=== PATIENT | male | born 1965 | race Caucasian/White ===

== ENCOUNTER 2016-09-14 11:41 | Emergency (ER) | payer OTHER ==
[~2016-09-14] VITALS: Ht 180.3 cm; Wt 79.4 kg
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
[2016-09-14 12:36] LABS: URINE SOURCE CLEAN CATCH
[2016-09-14 12:43] LABS: URINE APPEARANCE CLEAR; URINE BILIRUBIN NEG (NEG); URINE BLOOD NEG (NEG); URINE COLOR YELLOW; URINE GLUCOSE NEG (NEG); URINE KETONE NEG (NEG); URINE LEUKOCYTE ESTERASE NEG (NEG); URINE NITRATE NEG (NEG); URINE PROTEIN NEG (NEG); URINE SPECIFIC GRAVITY 1.014 (1.003-1.035)
[2016-09-14 12:46] LABS: CULTURE INDICATED? NO
[2016-09-14 12:58] LABS: BASOPHIL% 0.2 % (0-2.5); EOSINOPHIL# 0.2 X10e3 (0-0.7); EOSINOPHIL% 2.9 % (0.0-7.0); HEMATOCRIT 42.7 % (38.0-50.0); HEMOGLOBIN 14.2 gm/dL (13.0-16.0); LYMPHOCYTE# 1.5 X10e3 (1.0-3.5); LYMPHOCYTE% 21.2 % (17.0-45.0); MEAN CELL VOLUME 86.2 FL (83-96); MEAN CORPUSCULAR HEMOGLOBIN 28.7 PG (28-34); MEAN CORPUSCULAR HGB CONC 33.3 g/dL (30-36); MEAN PLATELET VOLUME 8.6 FL (6.5-11.5); MONOCYTE# 0.4 X10e3 (0-1.0); MONOCYTE% 6.1 % (3.0-12.0); NEUTROPHIL# 5.1 X10e3 (1.5-7.1); NEUTROPHIL% 69.6 % (40-75); PLATELET COUNT 212 X10e3 (140-420); RED BLOOD COUNT 4.96 X10e (3.90-5.60); RED CELL DISTRIBUTION WIDTH 13.8 % (11.0-15.5); WHITE BLOOD COUNT 7.3 X10e3 (4.0-10.5)
[2016-09-14 13:13] LABS: DIFF IND NO
[2016-09-14 13:24] LABS: BUN/CREATININE RATIO 16.36; CREATININE SERUM 1.1 mg/dL (0.6-1.4); GLOM FILT RATE Estimated 77.9 mL/min (>60); POTASSIUM 3.9 mmol/L (3.5-5.1)
[2016-09-27] MEDS ORDERED: ASPIRIN81 M2 PO (13:12)
[2016-09-27] MEDS ORDERED: ADVIL200 M1 (13:13)
[2016-10-04] MEDS ORDERED: FLEXERIL10 MG PO (09:00)
== END 2016-09-14 14:55 | disposition home or self-care (01) ==
LOC: CFTX 11:41 → CED 11:41 → CFTX 14:53
PROVIDERS: Nurse Practitioner
DX: S30.0XXA Contusion of lower back and pelvis, initial encounter (principal); K40.90 Unilateral inguinal hernia, without obstruction or gangrene, not specified as recurrent; R03.0 Elevated blood-pressure reading, without diagnosis of hypertension; I25.2 Old myocardial infarction; Z87.891 Personal history of nicotine dependence; V43.52XA Car driver injured in collision with other type car in traffic accident, initial encounter
CPT/HCPCS: 36415; 71020; 74177; 76870; 80048; 81003; 85025; 93976; 99284; Q9967

== ENCOUNTER → 2016-09-27 | Outpatient (CLI) | payer OTHER ==
[~2016-09-27] MED LIST: ADVIL200 M1; ASPIRIN81 M2 PO; FLEXERIL10 MG PO
--- NOTE | ~2016-09-27 | EKG ---
PATIENT: JESUS BEAN UNIT #: [id number] Ventricular Rate: 63 BPM Atrial Rate: 63 BPM P-R Interval: 156 ms QRS Duration: 98 ms Q-T Interval: 392 ms QTC Calculation(Bezet): 401 ms P Romney: 73 degrees Calculated R Romney: 77 degrees Calculated T Romney: 77 degrees Diagnosis Line: Normal sinus rhythm with sinus arrhythmia Diagnosis Line: Septal infarct , age undetermined Diagnosis Line: Abnormal ECG Diagnosis Line: Diagnosis Line: Confirmed by SHERIE GALAVIZ MD ([id number]) on 09/27/2016 Diagnosis Line: 5:04:11 PM INTERPRETING MD: GUILLAUME TAVERAS
== END | disposition home or self-care (01) ==
LOC: CAMB 12:51
DX: Z01.810 Encounter for preprocedural cardiovascular examination (principal)
CPT/HCPCS: 93005

== ENCOUNTER → 2016-10-04 | Day surgery (SDC) | payer OTHER ==
--- NOTE | ~2016-10-04 | OR ---
Unit #: [id number] #: [id number] Patient: JESUS BEAN JR [id number] [address] [place], [place] [address] [id number] O MR#: [id number] NAME: JESUS BEAN JR ROOM: Date of Procedure: 10/04/2016 Admission Date: 10/04/2016 Surgeon: Karan Blair III, M.D. : 1965 Attending Physician: Karan Blair III, M.D. Primary Care Physician: Carter Kapadia M.D. OPERATIVE REPORT PREOPERATIVE DIAGNOSIS Incarcerated left inguinal hernia. POSTOPERATIVE DIAGNOSIS Incarcerated left inguinal hernia. PROCEDURE PERFORMED Laparoscopic left inguinal hernia repair with mesh. ANESTHESIA General. SPECIMENS None. COMPLICATIONS None apparent. INDICATIONS FOR PROCEDURE This is a 50-year-old gentleman, who presented with a bulge in his left groin area. He is here today for laparoscopic repair. DESCRIPTION OF PROCEDURE After consent was obtained, the patient was brought to the operating room and placed in the supine position. General anesthetic was administered, and his abdomen and bilateral groin areas were prepped and draped in standard surgical fashion. I made a 1 cm incision just below the umbilicus. I elevated this with a towel clamp and used a Veress needle to obtain CO2 pneumoperitoneum. I then placed a 5-mm trocar in that location. I performed diagnostic laparoscopy. I did not see any hernias on the right side and on the left side, he had an indirect inguinal hernia that was small to medium in size, but had some incarcerated omentum. I was able to physically reduce the incarcerated omentum and then proceeded with the case laparoscopically. I released the pneumoperitoneum. I then incised the left anterior rectus sheath with an 11 blade. I swept the rectus muscles laterally and created a tunnel just posterior to them. I used a balloon dissector to create the preperitoneal space. I then placed a balloon trocar and obtained CO2 pneumopreperitoneum. I then placed two 5-mm trocars along the midline. I began by cleaning out the space in the retropubic area. I then dissected out the lateral space. I was able to get circumferential control around the cord structures. I then carefully dissected the indirect inguinal hernia sac off the cord structures. I Unit #: [id number] #: [id number] Patient: JESUS BEAN JR then transected this distally and ligated the proximal portion with an endoloop. I brought this all the way back to the peritoneal reflection. Once I had the dissection completed, I placed a large 3DMax mesh that was placed through the infraumbilical port site. It was unfurled and positioned to widely cover the hernia defect. I then held the mesh in place and released the pneumopreperitoneum. I removed all trocars. All needle, sponge, and instrument counts were correct x2 and hemostasis was excellent. I then reapproximated the fascia at the inner infraumbilical port site with interrupted 0 Vicryl suture. The skin edges were reapproximated with interrupted 4-0 Vicryl subcuticular suture. Steri-Strips were then applied. The patient tolerated the procedure without any problems and returned to the recovery room in stable condition. Dictated by... Karan Blair III, M.D. VCL/chapincito TD: 10/06/2016 15:05 JOB #: [id number] OPERATIVE REPORT Page 1 of 1 X Karan Blair III, MD PROCEDURE OPERATIVE NOTE
== END | disposition home or self-care (01) ==
LOC: CSUR 08:22
DX: K40.30 Unilateral inguinal hernia, with obstruction, without gangrene, not specified as recurrent (principal); I25.10 Atherosclerotic heart disease of native coronary artery without angina pectoris; Z87.891 Personal history of nicotine dependence; Z79.82 Long term (current) use of aspirin; Z79.899 Other long term (current) drug therapy; Z95.5 Presence of coronary angioplasty implant and graft
CPT/HCPCS: C1781; J0330; J0690; J1885; J2250; J2405; J2710; J3010